=== PATIENT | male | born 1985 | race Caucasian/White ===

== ENCOUNTER 2019-04-01 19:02 | Emergency (ER) | payer OTHER ==
[~2019-04-01] VITALS: Ht 165.1 cm; Wt 116.1 kg
[~2019-04-01 19:02] MED LIST: TRAZODONE HCL150 MG PO
[2019-04-01] MEDS ORDERED: DOXEPIN HCL100 MG PO (19:53)
[2019-04-01] MEDS ORDERED: FORTAMET500 MG PO (19:53)
[2019-04-01] MEDS ORDERED: ASPIR-LOW81 MG PO (19:54)
[2019-04-01] MEDS ORDERED: PRILOSEC OTC20 MG PO (19:54)
[2019-04-01] MEDS ORDERED: LEXAPRO20 MG PO (20:02)
[2019-04-01] MEDS ORDERED: ATORVASTATIN CA40 MG PO (20:03)
[2019-04-01] MEDS ORDERED: LISINOPRIL20 MG PO (20:04)
[2019-04-01] MEDS ORDERED: CLOTRIMAZOLE AF1523 TP (20:04)
[2019-04-01] MEDS ORDERED: CAPZASIN-HP42.5 GM TOP (20:04)
[2019-04-01] MEDS ORDERED: HYDROXYZINE PAM50 MG PO (20:05)
[2019-04-01] MEDS ORDERED: LEVAQUIN500 MG PO (21:05)
== END 2019-04-01 21:21 | disposition home or self-care (01) ==
LOC: ED 19:02
DX: N45.1 Epididymitis (principal); F43.10 Post-traumatic stress disorder, unspecified; Z87.891 Personal history of nicotine dependence; Z88.8 Allergy status to other drugs, medicaments and biological substances; Z91.010 Allergy to peanuts; Z79.899 Other long term (current) drug therapy; Z79.82 Long term (current) use of aspirin; Z79.84 Long term (current) use of oral hypoglycemic drugs
CPT/HCPCS: 81001; 99283

== ENCOUNTER 2020-05-26 15:32 | Emergency (ER) | payer OTHER ==
[~2020-05-26] VITALS: Ht 165.1 cm; Wt 116.1 kg
[~2020-05-26 15:32] MED LIST changes: +ASPIR-LOW81 MG PO; +ATORVASTATIN CA40 MG PO; +CAPZASIN-HP42.5 GM TOP; +CLOTRIMAZOLE AF1523 TP; +DOXEPIN HCL100 MG PO; +FORTAMET500 MG PO; +HYDROXYZINE PAM50 MG PO; +LEVAQUIN500 MG PO; +LEXAPRO20 MG PO; +LISINOPRIL20 MG PO; +PRILOSEC OTC20 MG PO
[2020-05-26] MEDS ORDERED: BUSPIRONE HCL15 MG PO (18:50)
[2020-05-26] MEDS ORDERED: DOXEPIN HCL100 MG PO (18:51)
[2020-05-26] MEDS ORDERED: ALPHA LIPOIC A300 MG PO (18:52)
[2020-05-26] MEDS ORDERED: NOVOLOG100 UNIT/1 SUB-Q (18:52)
[2020-05-26] MEDS ORDERED: CETIRIZINE HCL10 M1 PO (18:53)
[2020-05-26] MEDS ORDERED: MELOXICAM15 MG (18:53)
[2020-05-26] MEDS ORDERED: MELOXICAM15 MG PO (18:53)
[2020-05-26] MEDS ORDERED: METOPROLOL SUCC50 MG PO (18:54)
--- NOTE | 2020-05-27 18:34 | EKG ---
[facility] [address] [facility] [place], [place] [address] Signed Sinus tachycardia Rightward axis Cannot rule out Anterior infarct , age undetermined Abnormal ECG No previous ECGs available Confirmed by HEBER JORGENSEN DO ([id number]) on 05/27/2020 6:34:10 PM Electronically Signed By: HEBER JORGENSEN DO 05/27/20 1834 PATIENT NAME: HARRISONDIMA RUFINO Electrocardiogram DATE OF : 81 PHYSICIAN: HEBER JORGENSEN DO REPORT #: [id number] REPORT IS CONFIDENTIAL AND NOT TO BE RELEASED WITHOUT AUTHORIZATION
== END 2020-05-26 21:50 | disposition home or self-care (01) ==
LOC: ED 15:32
DX: M79.89 Other specified soft tissue disorders (principal); E11.65 Type 2 diabetes mellitus with hyperglycemia; R07.89 Other chest pain; Z87.891 Personal history of nicotine dependence; Z88.8 Allergy status to other drugs, medicaments and biological substances; Z91.010 Allergy to peanuts; Z79.899 Other long term (current) drug therapy; Z79.82 Long term (current) use of aspirin; Z79.4 Long term (current) use of insulin
CPT/HCPCS: 71045; 80053; 82550; 83735; 84484; 85025; 85379; 93005; 93010; 93971; 96374; 96375; 99285-25; J1815; J1885; J7121

== ENCOUNTER 2021-12-27 21:14 | Emergency (ER) | payer OTHER ==
[~2021-12-27] VITALS: Ht 165.1 cm; Wt 131.5 kg
[~2021-12-27 21:14] MED LIST changes: +ALPHA LIPOIC A300 MG PO; +BUSPIRONE HCL15 MG PO; +CETIRIZINE HCL10 M1 PO; +MELOXICAM15 MG; +MELOXICAM15 MG PO; +METOPROLOL SUCC50 MG PO; +NOVOLOG100 UNIT/1 SUB-Q
--- NOTE | 2021-12-28 06:58 | EKG ---
[facility] [address] [place], [place] [address] Signed Normal sinus rhythm Normal ECG When compared with ECG of 26-MAY-2020 17:37, No significant change was found Confirmed by ANTHONY URIBE MD ([id number]) on 12/28/2021 6:58:08 AM Electronically Signed By: ANTHONY URIBE MD 12/28/21 0658 PATIENT NAME: DIMA HARRISON Electrocardiogram DATE OF : 81 PHYSICIAN: ANTHONY URIBE MD REPORT #: [id number] REPORT IS CONFIDENTIAL AND NOT TO BE RELEASED WITHOUT AUTHORIZATION
--- NOTE | 2021-12-28 06:58 | EKG ---
[facility] [address] [place], [place] [address] Signed Normal sinus rhythm Cannot rule out Anterior infarct , age undetermined Abnormal ECG When compared with ECG of 27-DEC-2021 21:14, (Unconfirmed) No significant change was found Confirmed by ANTHONY URBIE MD ([id number]) on 12/28/2021 6:58:16 AM Electronically Signed By: ANTHONY URIBE MD 12/28/21 0658 PATIENT NAME: DIMA HARRISON Electrocardiogram DATE OF : 81 PHYSICIAN: ANTHONY URIBE MD REPORT #: [id number] REPORT IS CONFIDENTIAL AND NOT TO BE RELEASED WITHOUT AUTHORIZATION
== END 2021-12-28 00:49 | disposition home or self-care (01) ==
LOC: ED 21:14
DX: R07.89 Other chest pain (principal); E11.9 Type 2 diabetes mellitus without complications; Z86.16 Personal history of COVID-19; Z87.891 Personal history of nicotine dependence; Z88.8 Allergy status to other drugs, medicaments and biological substances; Z91.018 Allergy to other foods; Z79.899 Other long term (current) drug therapy; Z79.4 Long term (current) use of insulin; Z20.822 Contact with and (suspected) exposure to COVID-19
CPT/HCPCS: 36415; 71045; 80053; 83880; 84484; 85025; 85379; 87502; 93005; 93010; C9803; J1885; U0003